=== PATIENT | female | born 1945 | race Caucasian/White ===

== ENCOUNTER 2019-10-09 10:22 | Inpatient (IN) ==
[~2019-10-09 10:22] MED LIST: TRANEXAMIC ACID 1,000 MG in NORMAL SALINE 100 ML IV PRN; ceFAZolin SODIUM 1 GM VIAL IV PRN
[2019-10-09] MEDS: RINGER'S SOLUTION,LACTATED 1,000 ML IV PRN ×2 (11:19→13:55)
[2019-10-09] MEDS ORDERED: PROPOFOL VIAL IV ONE (11:28)
[2019-10-09] MEDS ORDERED: ONDANSETRON HCL/PF 2 MG/ML VIAL ONE (11:28)
[2019-10-09] MEDS ORDERED: BUPIVACAINE HCL/EPINEPHRINE 50 ML VIAL ONE (11:29)
[2019-10-09] MEDS ORDERED: ceFAZolin SODIUM 1 GM VIAL ONE (11:31)
[2019-10-09] MEDS ORDERED: SCOPOLAMINE HYDROBROMIDE 1.5 MG PATC TD ONE ×2 (11:50→11:56)
--- NOTE | 2019-10-09 11:50 | ANES ---
Anesthesia Pre Procedure Eval Vitals/Labs: Last Vital Signs Temp 36.9 C 10/09/19 10:39 Pulse 59 L 10/09/19 10:39 Resp 17 10/09/19 10:39 BP 109/43 10/09/19 10:39 Pulse Ox 98 10/09/19 10:39 HOME MEDICATIONS amlodipine 5 mg-valsartan 160 mg tablet 1 tab PO DAILY tab 10/03/19 [Last Taken 10/09/19] armodafinil 250 mg tablet 250 mg PO DAILY tab 10/03/19 [Last Taken 10/08/19] cyclobenzaprine 5 mg tablet See Rx Instructions PO Q6H PRN #42 tab 10/03/19 [Last Taken 10/08/19] fentanyl 100 mcg/hr transdermal patch 1 patch TP Q72H ea 10/03/19 [Last Taken 10/08/19] glycopyrrolate 9 mcg-formoterol 4.8 mcg HFA aerosol inhaler 2 puff IH BID g 10/03/19 [Last Taken 10/09/19] levalbuterol tartrate 45 mcg/actuation aerosol inhaler 2 puff IH TID PRN g 10/03/19 [Last Taken 10/02/19] levothyroxine 112 mcg tablet 112 mcg PO DAILY tab 10/03/19 [Last Taken 10/08/19] lubiprostone 24 mcg capsule 24 mcg PO BID 10/03/19 [Last Taken 10/08/19] morphine 15 mg immediate release tablet 15 mg PO Q6H PRN #42 tab 10/03/19 [Last Taken 10/08/19] morphine 15 mg tablet,extended release 15 mg PO BID tab 10/03/19 [Last Taken 10/08/19] omeprazole 20 mg capsule,delayed release 20 mg PO BID cap 10/03/19 [Last Taken 10/08/19] paroxetine HCl 30 mg tablet 30 mg PO DAILY 10/03/19 [Last Taken 10/08/19] potassium chloride 10 mEq tablet,extended release 10 meq PO BID tab 10/03/19 [Last Taken 10/08/19] prednisone 1 mg tablet 2 mg PO DAILY tab 10/03/19 [Last Taken 10/08/19] trazodone 100 mg tablet 100 mg PO DAILY 10/03/19 [Last Taken 10/08/19] Acetaminophen [Tylenol] 2 tab PO BID PRN 10/09/19 [Last Taken 10/08/19] Allergies/Adverse Reactions: Allergies Allergy/AdvReac Type Severity Reaction Status Date / Time Iodinated Contrast Media Allergy Severe Anaphylaxis Verified 10/03/19 11:09 [IV Dye, Iodine Containing Contrast ] NSAIDS (Non-Steroidal Allergy Severe kidney Verified 10/09/19 11:00 Anti-Inflamma shut down Sulfa (Sulfonamide Allergy Severe Anaphylaxis Verified 10/03/19 11:09 Antibiotics) [Sulfa(Sulfonamide Antibiotics)] acetaminophen [From Vicodin] Allergy Intermediate itch Verified 10/09/19 11:00 bee pollen Allergy Intermediate itch Verified 10/09/19 11:00 codeine [Codeine] Allergy Intermediate itch Verified 10/09/19 11:00 doxycycline Allergy Intermediate very sick Verified 10/09/19 11:00 to stomach hydrocodone bitartrate Allergy Intermediate itch Verified 10/09/19 11:00 [From Vicodin] pentazocine [From Talwin] Allergy Intermediate hives Verified 10/09/19 11:00 sulfamethoxazole Allergy Intermediate itch Verified 10/09/19 11:00 [From Bactrim] tramadol HCl [From Ultram] Allergy Intermediate itch Verified 10/09/19 11:00 trimethoprim [From Bactrim] Allergy Intermediate itch Verified 10/09/19 11:00 - Planned Procedure Planned Procedure: Arthroplasty Total Shoulder Reverse Cemented Medication List Reviewed:: Yes Allergies Verified: Yes Medical History (Last Reviewed 10/09/19 @ 11:49 by Saad Sahni CRNA) Acid reflux BiPAP (biphasic positive airway pressure) dependence Chronic pain all over body Hypothyroid IBS (irritable bowel syndrome) Narcolepsy CHF (congestive heart failure) Onset Date: Unknown COPD (chronic obstructive pulmonary disease) Onset Date: Unknown History of cystocele Hypertension Onset Date: Unknown Osteoarthritis Onset Date: Unknown Osteopenia Onset Date: Unknown Vocal cord polyp Surgical History (Last Reviewed 10/09/19 @ 11:49 by Saad Sahni CRNA) H/O: hysterectomy Onset Date: ~1978 w/ cystocele repair History of carpal tunnel release Onset Date: Unknown lt wrist History of femoral hernia repair Onset Date: ~1999 History of incision and drainage Onset Date: ~2007 lt hip bursa History of lumpectomy of right breast aspiration of 1 lump bilateral also removal and biopsy lt breast mass History of vocal cord polypectomy Onset Date: ~1992 Hx of cholecystectomy Onset Date: ~1998 S/P correction of deviated nasal septum Onset Date: ~2004 S/P foot surgery, right Onset Date: ~2001 x3 removal broken bone rt great toe; tendon repair Status post left foot surgery Onset Date: ~2006 tendon reattachment;pin;joint removal Family History (Last Reviewed 10/09/19 @ 11:49 by Saad Sahni CRNA) Mother Scoliosis COPD (chronic obstructive pulmonary disease) Hypertension Father Hypertension Sister Acute Crohn's disease Brother Colon abnormality long colon, had surgery to remove some Brother Colon abnormality long colon, had surgery to remove some Brother Alive and well Brother Alive and well Brother Alive and well - Family Anesthesia History Family History:: no untoward family reactions to anesthesia - Airway/Neck/Teeth Within Normal Limits:: Yes Teeth Condition: intact Neck Exam: full range of motion Mallampatti Score: 1 Thyromental (T-M) distance: > 6 cm Mandibulo Hyoid distance: > 3 cm - Respiratory Respiratory History: COPD Respiratory Physical: lungs clear Smoking Status: Former smoker Sleep Apnea currently treated: Yes Sleep Apnea by current assessment: Yes - Cardiovascular Cardiac History: CHF, hypertension Tolerate Activity: Fair Heart Sounds: S1 & S2, Regular - Gastrointestinal NPO since: MN - Anesthesia Assessment and Plan ASA Class: PS, III Anesthesia Type Plan: General LMA - interscalene nerve block Planned difficult intubation/equipment available: No
[2019-10-09] MEDS ORDERED: oxyCODONE HCL/ACETAMINOPHEN 1 TAB TABLET PO PRN ×2 (16:11)
[2019-10-09] MEDS ORDERED: MAGNESIUM HYDROXIDE 30 ML UDC PO PRN (16:11)
[2019-10-09] MEDS ORDERED: MORPHINE SULFATE 2 MG/ML DISP.SYRIN IV PRN (16:11)
[2019-10-09] MEDS ORDERED: ACETAMINOPHEN 500 MG TABLET PO PRN (16:11)
[2019-10-09] MEDS ORDERED: MAG HYDROX/ALUMINUM HYD/SIMETH 30 ML UDC PO PRN (16:11)
[2019-10-09] MEDS ORDERED: ONDANSETRON HCL/PF 2 MG/ML VIAL IV PRN (16:11)
[2019-10-09] MEDS ORDERED: MORPHINE SULFATE 15 MG TABLET.SA PO SCH (16:30)
--- NOTE | 2019-10-09 16:40 | OR ---
Operative Report - Dictated Report Narrative: Date: 10/09/2019 Physician: Israel Moreira M.D. Sprinkler Driver: Angel Metcalf PA-C provided a set of essential, skilled, educated hands that assisted in positioning, transfer, retraction, manipulation, irrigation, closure of wounds, and placement of dressings all of which could not be provided by the available surgical crew. Preoperative diagnosis: Right three-part proximal humerus fracture involving the surgical neck and greater tuberosity Postoperative diagnosis: Right three-part proximal humerus fracture involving the surgical neck and greater tuberosity Procedure: Right cemented reverse total shoulder arthroplasty Anesthesia: General plus regional Complications: None Estimated blood loss: 200 mL Specimens: Bone for disposal Retained implants: Depuy Delta Xtend cemented monobloc 10 mm humeral stem, Delta Xtend cementless metaglene, Delta Xtend 38 mm glenosphere, Delta Xtend polyethylene cup 38 mm/+9 mm Drains: None Indications: Peyton is a 74 year-old female who sustained a right three-part proximal humerus fracture after a fall from standing height. She was initially seen in the emergency department where plain films revealed the above injury. She was placed in a shoulder immobilizer and followed up in my clinic to discuss treatment options. We discussed the options of nonoperative management versus open reduction internal fixation versus hemiarthroplasty versus reverse total shoulder arthroplasty. I counseled her that based on her age, activity level, and fracture pattern, I recommended reverse total shoulder arthroplasty. The risks, benefits, and alternatives were discussed in clinic. The risks being , bleeding, infection, axillary nerve injury, vascular injury, persistent pain, instability, stiffness, need for prolonged therapy, implant failure/loosening, need for additional procedures, and persistent symptoms. Consent was obtained in the clinic. Procedure: After marking the correct extremity in the preoperative holding area, a timeout was performed in the operating room. IV antibiotics consisting of 1 g of Ancef were administered prior to the procedure. A general followed by regional anesthetic was induced by the nurse archivist economic history. This was in the supine position, then the patient was transitioned to a beachchair position with all bony prominences well-padded, head in neutral, the nonoperative arm well supported, and the legs padded with SCDs in place. The operative shoulder was then prepped and draped in a standard sterile fashion. After marking out the bony landmarks, an approximately 12 cm deltopectoral incision was marked out and incised with a sharp knife. A combination of blunt dissection and electrocautery was carried down through subcutaneous tissue to the level of the deltopectoral fascia. The fascial interval was developed with Metzenbaum scissors identifying the cephalic vein which was protected. Blunt finger dissection was used to develop the deltopectoral interval and the deltoid and cephalic vein were retracted laterally while the pectoralis major was retracted medially. This revealed the conjoined tendon and anterior aspect of the shoulder. The fracture site was identified and thoroughly debrided of all non- viable tissue with a combination of a sharp knife and a rongeur. This demonstrated a surgical neck fracture along with a slightly comminuted fracture of the greater tuberosity. There was significant impaction of the humeral head onto the shaft. Electrocautery was used to develop the rotator cuff interval between the supraspinatus and subscapularis tendons, which were intact. A sharp knife was used to tenotomize the biceps tendon. At this point, we proceeded with osteotomizing the lesser tuberosity as well as the remainder of the greater tuberosity for later repair. This was done with a three-quarter inch straight osteotome. Once the tuberosities were osteotomized the humeral head was retrieved out of the wound and placed on the Slater stand. Any loose fragments of bone were removed from the joint. At this point the arm was externally rotated and the proximal humeral shaft was delivered out of the wound. Sequential hand reaming up to a size 10 mm reamer was performed achieving good cortical chatter. The reamer was then removed and due to the fracture, there was no further humeral prep needed at this point. Three #5 Ethibond sutures were placed through the infraspinatus tendon in preparation for later tuberosity repair. These were tagged with hemostats. Attention was then turned to the glenoid. A series of glenoid retractors were used to retract the tuberosities and proximal humeral shaft out of the way, as well as to retract the anterior soft tissue giving us 360 exposure of the glenoid. The labrum and remaining biceps stump were then removed in their entirety with a sharp knife. The base of the coracoid was identified as well as the inferior/lateral border of the scapula and these were marked out to establish the bony anatomy of the glenoid. The glenoid guide was then placed in the appropriate position flush with the inferior portion of the glenoid and the center guide pin was advanced into place angled approximately 10 degrees superiorly. The glenoid was then reamed removing all cartilage and soft tissue being careful to preserve subchondral bone. The central peg drill was then advanced down over our central pin and drilled. The guidepin was then removed. The cementless metaglene was then impacted into place in the appropriate rotation. The superior and inferior screws were then drilled, measured, and filled with the appropriate length locking screws. The anterior and posterior holes were then drilled, measured, and filled with the appropriate length nonlocking screws. The superior and inferior locking screws were then tightened. We then secured a 38 mm glenosphere onto the metaglene. Attention was turned back to the humerus. A 10 mm monoblock cemented humeral stem was chosen. The 3 Ethibond sutures throughout infraspinatus were then placed through the medial calcar hole of the implant and brought anteriorly through the subscapularis tendon. 4 drill holes were then placed in the proximal humeral shaft and two #5 Ethibond sutures were placed through these holes for additional tuberosity fixation. A cement restrictor was then advanced down the humeral canal to the appropriate depth. The humeral canal was then prepared with a brush and Pulsavac irrigation. This was stuffed with a dry Ray- Tenzin sponge. The cement was then mixed and, once it reached the appropriate consistency, the humeral canal was filled with cement. The stem was then advanced down the humeral canal and approximately 15 degrees of retroversion and held while the cement cured. Once the cement had adequately hardened, we began trialing polyethylene cups. It was found that a 38 mm /+9 mm poly gave good stability and good soft tissue tension. The final polyethylene cup was impacted into place and the joint was reduced. We then turned our attention to our tuberosity repair. Bone graft was obtained from the humeral head using a ronguer. This was packed around the proximal body of the stem. The 3 sutures through the infraspinatus and subscapularis were then sequentially tied bringing the tuberosities into the appropriate position over the top of our packed bone graft. Additional bone graft was packed between the tuberosities and our implant. The 2 sutures from the proximal humeral shaft were placed through the infraspinatus and subscapularis tendons to provide restraint to superior migration. We felt we had adequate tuberosity repair at this point. The shoulder was taken through range of motion and found to have good stability and full passive motion with no impingement. At this point the wound was copiously irrigated with normal saline. 0 Vicryl was utilized in order to close the delto-pectoral fascia. 3-0 Vicryl was placed in the subcutaneous tissue. Skin was closed with a running subcuticular 4-0 Monocryl. Dressings consisting of Prineo, 4 x 4, ABD, and tape were applied. The operative arm was then placed in a shoulder immobilizer. All sponge, needle, blade, and instrument counts were correct prior to closing the wounds. The patient was awoken and transferred to the postanesthesia care unit in stable condition.
--- NOTE | 2019-10-09 16:43 | ANES ---
Post Anesthesia Discharge - Transfer of Care Transfer of Care handoff given to nurse: Yes - Discharge from PACU Discharge from PACU when meets criteria: Yes
--- NOTE | 2019-10-09 16:48 | ANES ---
Post Anesthesia Assessment - Vital Signs Vitals: Last Vital Signs Temp 36.7 C 10/09/19 16:35 Pulse 55 L 10/09/19 16:35 Resp 14 10/09/19 16:35 BP 112/49 10/09/19 16:35 Pulse Ox 100 10/09/19 16:35 Airway Patency: Normal - Mental Status Level Of Consciousness: Drowsy - Pain Level Pain Score: 0 - N/V Assessment Nausea/Vomiting Presence: None Dehydration:: No
--- NOTE | 2019-10-09 16:48 | ANES ---
Anesthesia Procedure Note Procedure Note: ANESTHESIA PROCEDURE NOTE Date of procedure: 10/09/2019. Time of procedure: 1310. Performed by: Yossi Sahni CRNA Historiography Professor: Izabella Judd RN . Preprocedure diagnosis: Right proximal humerus fracture. Post procedure diagnosis: Same. Procedure: Ultrasound-guided right interscalene nerve block Indications: Postoperative pain relief for right reverse total shoulder.. Findings: Patient brought to operating room #3 and given a general anesthetic induction with an LMA insertion. Patient was then placed in a semi-Fowlers position. The right side of patient's neck was prepped with ChloraPrep. Ultrasound utilized to identify the brachial plexus in the right interscalene groove. A 22-gauge 2 inch regional block needle was advanced under ultrasound guidance until tip of needle was positioned just proximal to brachial plexus. A nerve stimulator was utilized with muscle twitch noted starting at 0.8 mA. Muscle twitch was noted to decrease in intensity as amperage was decreased. Muscle twitch disappeared entirely at 0.5 mA. 20 mL of 0.5% Marcaine with epinephrine 1-200,000 was injected with adequate spread of local anesthesia noted around the nerve roots. The regional block needle was then repositioned until placed just distally to brachial plexus. 15 mL of 0.5% Marcaine with epinephrine 1-200,000 was injected again with adequate spread of local anesthetic noted. Regional block needle was removed intact. EBL: Minimal. Fluids: N/A. Specimen: N/A. Post procedure condition: The patient tolerated the procedure well. No complications were noted. Thank you for this consultation Yossi Sahni CRNA
[2019-10-09] MEDS ORDERED: ACETAMINOPHEN PO PRN (17:15)
[2019-10-09] MEDS: NORMAL SALINE 1,000 ML IV PRN (17:27)
[2019-10-09] MEDS: LEVALBUTEROL HCL 1.25 MG/3 ML AMPUL IH PRN (17:49)
[2019-10-09] MEDS: FORMOTEROL FUMARATE 20 MCG/2 ML VIAL IH SCH ×2 (17:49→18:24)
[2019-10-09] MEDS: ceFAZolin SODIUM 1 GM in DEXTROSE 5 % IN WATER 100 ML IV SCH ×2 (20:38)
[2019-10-09] MEDS ORDERED: FORMOTEROL FUM IH SCH (21:00)
[2019-10-09] MEDS ORDERED: SENNOSIDES/DOCUSATE SODIUM 1 TAB TABLET PO SCH (21:00)
[2019-10-09] MEDS ORDERED: [UNRECOGNIZED DRUG - OTHER] IH SCH (21:00)
[2019-10-09] MEDS ORDERED: GLYCOPYRROLATE IH SCH (21:00)
[2019-10-09] MEDS: PANTOPRAZOLE SODIUM 20 MG TABLET.DR PO SCH (21:40)
[2019-10-09] MEDS: MORPHINE SULFATE 15 MG TABLET.SA PO SCH (21:40)
[2019-10-09] MEDS: POTASSIUM CHLORIDE 10 MEQ TABLET.SA PO SCH (21:40)
[2019-10-09] MEDS: Lubiprostone [Amitiza] 24 MCG PO SCH (21:41)
[2019-10-10] MEDS: MORPHINE SULFATE 10 MG/0.5 ML SYRINGE PO PRN ×2 (01:06→07:23)
[2019-10-10] MEDS: ceFAZolin SODIUM 1 GM in DEXTROSE 5 % IN WATER 100 ML IV SCH ×4 (04:21→11:32)
[2019-10-10] MEDS: NORMAL SALINE 1,000 ML IV PRN (05:46)
[2019-10-10] MEDS: LEVALBUTEROL HCL 1.25 MG/3 ML AMPUL IH PRN (06:06)
[2019-10-10] MEDS: FORMOTEROL FUMARATE 20 MCG/2 ML VIAL IH SCH (06:06)
[2019-10-10 06:37] LABS: Hematocrit 24.4 % (37.0-47.0); Mean Cell Volume 95.3 fl (78-100); Mean Corpuscular Hemoglobin 31.3 pg (27-31); Mean Corpuscular Hgb Conc 32.8 g/dl (32-36); Mean Platelet Volume 8.9 fl (8-12.5); Neutrophil # 4.2 K/mm3 (1.3-6.0); Neutrophil % 82.5 % (42-75.0); Platelet Count 196 K/mm3 (150-450); Red Blood Count 2.56 M/mm3 (4.2-5.4); Red Cell Distribution Width 12.5 % (11.5-14.0); White Blood Count 5.1 K/mm3 (4.0-10.5)
[2019-10-10 06:49] LABS: Albumin * 2.5 gm/dl (3.4-5.0); Anion Gap 11.4 mmol/L (6.8-13.8); BUN/Creatinine Ratio 15.2 (9.0-21.6); Bilirubin, Total 0.5 mg/dL (0.0-1.1); Ca. Corrected For Albumin 8.4 mg/dL (8.4-10.2); Calcium * 7.5 mg/dL (7.9-10.9); Carbon Dioxide 25.2 mmol/L (24-32.6); Potassium 4.6 mmol/L (3.4-4.6); Total Protein 4.9 gm/dL (6.2-8.2)
[2019-10-10] MEDS ORDERED: LEVOTHYROXINE SODIUM 112 MCG TABLET PO SCH (07:00)
[2019-10-10] MEDS ORDERED: TIOTROPIUM BROMIDE 5 CAP INHALER IH SCH (07:00)
[2019-10-10] MEDS: PANTOPRAZOLE SODIUM 20 MG TABLET.DR PO SCH (07:27)
[2019-10-10] MEDS ORDERED: oxyCODONE HCL/ACETAMINOPHEN 1 TAB TABLET PO PRN (08:53)
[2019-10-10] MEDS ORDERED: VALSARTAN PO SCH (09:00)
[2019-10-10] MEDS ORDERED: LOSARTAN POTASSIUM 50 MG TABLET PO SCH (09:00)
[2019-10-10] MEDS ORDERED: PAROXETINE HCL 30 MG PO SCH (09:00)
[2019-10-10] MEDS ORDERED: traZODone HCL 50 MG TABLET PO SCH (09:00)
[2019-10-10] MEDS ORDERED: AMLODIPINE PO SCH (09:00)
[2019-10-10] MEDS ORDERED: predniSONE 1 MG TABLET PO SCH (09:00)
[2019-10-10] MEDS ORDERED: amLODIPine BESYLATE 5 MG TABLET PO SCH (09:00)
[2019-10-10] MEDS: POTASSIUM CHLORIDE 10 MEQ TABLET.SA PO SCH ×2 (09:02→17:04)
[2019-10-10] MEDS: MORPHINE SULFATE 15 MG TABLET.SA PO SCH (09:03)
[2019-10-10] MEDS: oxyCODONE HCL/ACETAMINOPHEN 1 TAB TABLET PO PRN ×2 (09:06→14:43)
[2019-10-10] MEDS: Lubiprostone [Amitiza] 24 MCG PO SCH (09:34)
--- NOTE | 2019-10-10 11:05 | PN ---
Subjective - Date and Time Seen Date: 10/10/19 Time: 10:58 Subjective Narrative: I have right shoulder pain Objective Objective Narrative: 74-year-old female status post right shoulder reverse arthro-plasty day #1 was evaluated at bedside was found to be afebrile and in no acute distress. Physical examination of the patient was only significant for the right shoulder covered with a clean and dry dressing/bandages, the upper extremities and immobilizer/sling. Patient tolerated BiPAP machine without any issues and said she was able to sleep well. This morning she is saturating adequately and maintained stable vitals. Her only complaint at this time is right shoulder pain which is expected therefore she will be administered pain meds. Postop labs ordered for this morning demonstrate anemia with a hemoglobin of 8, will continue to monitor this and reevaluate for transfusion if need be. Follow-up labs were ordered for tomorrow morning. - Review of Systems Generalized/Overall Review: Reports: No Symptoms Reported EENTM: Reports: No Symptoms Reported Respiratory: Reports: No Symptoms Reported Cardiac: Reports: No Symptoms Reported Abdominal: Reports: No Symptoms Reported Genitourinary Symptoms: Reports: No Symptoms Reported Musculoskeletal Complaints: Reports: Joint Pain, Other - Right shoulder pain Neurological: Reports: No Symptoms Reported Skin: Reports: No Symptoms Reported Endocrine: Reports: No Symptoms Reported - Vitals Vitals: Last Vital Signs Temp 37.1 C 10/10/19 09:17 Pulse 78 10/10/19 09:17 Resp 19 10/10/19 09:17 BP 116/60 10/10/19 09:17 Pulse Ox 99 10/10/19 09:17 - Abnormal Lab Findings Abnormal Lab Findings: Abnormal Lab Results 10/10/19 10/10/19 Range/Units 06:30 06:30 RBC 2.56 L (4.2-5.4) M/mm3 Hgb 8.0 L (12.5-16.0) gm/dL Hct 24.4 L (37.0-47.0) % MCH 31.3 H (27-31) pg Neutrophils % 82.5 H (42-75.0) % Lymphocytes % 6.8 L (20-51) % Monocytes % 9.1 H (0.0-9) % Lymphocytes # 0.35 L (1.5-3.5) k/mm3 Calcium 7.5 L (7.9-10.9) mg/dL ALT 14 L (19-67) U/L Alkaline Phosphatase 41 L (50-170) U/L Total Protein 4.9 L (6.2-8.2) gm/dL Albumin 2.5 L (3.4-5.0) gm/dl - Exam Constitutional: Present: Alert, Oriented x3, Cooperative, Well developed, Well nourished, No distress, Elderly ENT Exam: Present: normal ENT inspection, hearing grossly normal, pharynx normal, TMs normal Neck: Present: non-tender, full range of motion, supple, normal inspection, trachea midline Respiratory: Present: chest non-tender, lungs clear, normal breath sounds, no respiratory distress, no accessory muscle use Cardiovascular/Chest: Present: normal peripheral pulses, regular rate, rhythm, no chest tenderness, no edema, no gallop, no JVD, no murmur, no rub Abdomen: Present: Normal bowel sounds, soft, nontender, nondistended, no rebound tenderness, no hepatospenomegaly, no masses /Rectal: Present: Exam deferred Extremity: Present: no pedal edema, no calf tenderness, normal capillary refill, swelling, other - Right shoulder covered with dry clean bandage, large hematoma with bluish discoloration of right forearm extending to dorsum of right hand. Sensation and circulation are intact. Hand is warm to touch. Skin Exam: Present: normal color, warm/dry, no cyanosis Lymphatic: Present: no adenopathy Neurologic: Present: airborne operations II-XII nml as tested, normal cerebellar test, no motor/sensory deficits, alert, normal mood/affect, oriented x 3 Appearance: Present: appropriate appearance, appropriate insight, neat, no me monet impairment Eye contact: Present: cooperative, good eye contact, normal speech Thoughts: Present: normal thought pattern, no apparent hallucination Assessment/Plan Plan Narrative: We will follow-up with labs in the morning to reevaluate postop anemia and follow-up with any further recommendations from Ortho. In the meantime patient is to continue with in hospital PT and OT as ordered by the Ortho team. - Problems/Diagnosis (1) Proximal humerus fracture Problem: Resolved (2) Status post reverse total arthroplasty of right shoulder Problem: Acute (3) Postoperative anemia due to acute blood loss Problem: Acute (4) COPD (chronic obstructive pulmonary disease) Problem: Chronic
--- NOTE | 2019-10-10 14:05 | DS ---
(1) Proximal humerus fracture Problem: Resolved Qualifiers: Encounter type: subsequent encounter Fracture type: closed Fracture morphology: other fracture Fracture alignment: displaced Laterality: right (2) Status post reverse total arthroplasty of right shoulder Problem: Acute Date of Discharge:: 10/10/19 Hospital Course: Patient is 74-year-old female postop day 1 status post right reverse cemented total shoulder arthroplasty for a three-part proximal humerus fracture. Patient was admitted for monitoring and observation postoperatively. Her monitoring for complications including pain control, return to p.o. diet, other surgical complications. Patient has had an uncomplicated stay her pain is now under control with p.o. pain medication. 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 Patient did have a drop in hemoglobin from 10-8, have discussed with patient's PCP to continued monitoring. Note she is asymptomatic at this time. Patient's PCP recommends for her to follow-up in 3 to 4 days consider repeat labs. Patient will follow-up with orthopedic outpatient clinic at 2 weeks postop, she will continue in the sling immobilizer, progress through PT/OT as tolerated per protocol. Peyton Feliciano is confined to the home due to significant right humerus fracture as well as postoperative recovery from reverse right total shoulder arthroplasty. Patient will need jail to continue to monitor incision site for erythema and drainage, continued need for pain medication and pain control modalities, there is also the need for physical therapy as well as occupational therapy to begin allowing for patient to return to a more functional status. These therapies will be guided by a protocol from our orthopedic office. The need for home health care skilled services directly related to the time spent [id number] with this person. Patient will also continue with the following recommendations: -Home health PT/OT progress as tolerated -Nonweightbearing right upper extremity, progression per protocol -Sling immobilizer in place at all times except for PT/OT -Monitor postoperative dressing, follow-up in orthopedic outpatient clinic at 2 weeks postop -P.o. diet as tolerated -Pain medication PRN, Percocet 5/325 mg 1-2 tabs every 4-6 hours PRN for pain p.o. -Follow-up with PCP to monitor hemoglobin in 3 to 4 days after discharge -Call orthopedic outpatient clinic with any other acute concerns pertaining to her shoulder Procedures Performed: see notes below List Procedures: Status post right cemented reverse total shoulder replacement for a three-part proximal humerus fracture Results and Findings: Lab Pending Results 10/09/19 16:03: Pathology Specimen Spec to path 10/10/19 06:30: WBC 5.1, RBC 2.56 L, Hgb 8.0 L, Hct 24.4 L, MCV 95.3, MCH 31.3 H, MCHC 32.8, RDW 12.5, Plt Count 196, MPV 8.9, Immature Gran % (Auto) 0.20, Immature Gran # (Auto) 0.01, Neutrophils % 82.5 H, Lymphocytes % 6.8 L, Monocytes % 9.1 H, Eosinophils % 0.8, Basophils % 0.6, Nucleated RBC % 0.0, Neutrophils # 4.2, Lymphocytes # 0.35 L, Monocytes # 0.5, Eosinophils # 0.0, Absolute Basophils 0.0 10/10/19 06:30: Sodium 134, Plasma Sodium 134, Potassium 4.6, Chloride 102, Carbon Dioxide 25.2, Anion Gap 11.4, BUN 10, Creatinine 0.66, Est GFR (Non-Af Amer) 93 D, BUN/Creatinine Ratio 15.2, Random Glucose 106, Calcium 7.5 L, Calcium Adj for Albumin 8.4, Total Bilirubin 0.5, AST 15, ALT 14 L, Alkaline Phosphatase 41 L, Total Protein 4.9 L, Albumin 2.5 L Discharge Location: Home Disposition: [facility] Agency: [facility] Condition: Good Discharge Activity: Activity as tolerated, Other - RUE NWB, sling immobilizer Discharge Diet: General/regular food Referrals: Israel Moreira MD [Staff Physician] - 10/24/19 2:00 pm Bárbara Enriquez APRN [Primary Care Provider] - Print Language (Nigerien or New Zealander Available): Nigerien Additional Patient Instructions (free text): Follow up with PCP on Tuesday. Follow up with Dr. Velez on 10-15-2019 at 8:30am. as PCP is on vacation. [facility] at discharge, please call and fax discharge information to them. [facility] number is [phone]. Follow up in the office with Dr. Moreira on Tuesday10/24/2019 at 2:00p.m. Prescriptions (Any new or edited meds): oxyCODONE HCL/ACETAMINOPHEN [Percocet 5 MG/325 MG] 1 - 2 tab PO Q4H PRN #90 tab PRN Reason: Moderate Pain (Pain Scale 4-6) Transmission Status: Received by [facility] Complete Home Medications List: Complete Home Medication List: amlodipine 5 mg-valsartan 160 mg tablet 1 tab PO DAILY tab 10/03/19 cyclobenzaprine 5 mg tablet See Rx Instructions PO Q6H PRN #42 tab 10/03/19 fentanyl 100 mcg/hr transdermal patch 1 patch TP Q72H ea 10/03/19 glycopyrrolate 9 mcg-formoterol 4.8 mcg HFA aerosol inhaler 2 puff IH BID g 10/03/19 levalbuterol tartrate 45 mcg/actuation aerosol inhaler 2 puff IH TID PRN g 10/03/19 levothyroxine 112 mcg tablet 112 mcg PO DAILY tab 10/03/19 morphine 15 mg immediate release tablet 15 mg PO Q6H PRN #42 tab 10/03/19 morphine 15 mg tablet,extended release 15 mg PO BID tab 10/03/19 omeprazole 20 mg capsule,delayed release 20 mg PO BID cap 10/03/19 paroxetine HCl 30 mg tablet 30 mg PO DAILY 10/03/19 potassium chloride 10 mEq tablet,extended release 10 meq PO BID tab 10/03/19 prednisone 1 mg tablet 2 mg PO DAILY tab 10/03/19 trazodone 100 mg tablet 100 mg PO DAILY 10/03/19 Acetaminophen [Tylenol] 2 tab PO BID PRN 10/09/19 oxyCODONE HCL/ACETAMINOPHEN [Percocet 5 MG/325 MG] 1 - 2 tab PO Q4H PRN #90 tab 10/10/19
[2019-10-10 18:06] VITALS: BP 113/59
== END 2019-10-10 17:50 | disposition home health service (06) | DRG 483 ==
LOC: MS 10:22
PROVIDERS: ADMIT Orthopaedic Surgery; ATTEND Orthopaedic Surgery
CPT/HCPCS: 36415; 73030; 80053; 85025; 88305; 88311; 94640; 94660; 94664; 97116; 97161; 97166; J2405